=== PATIENT | male | born 1985 | race Two or more races ===

== ENCOUNTER 2019-01-20 05:52 | Day surgery (SDC) | payer BC ==
[~2019-01-20] VITALS: Ht 177.8 cm; Wt 87.5 kg
[2019-01-20] VITALS (9 sets, daily range): BP systolic 109–138; BP diastolic 65–79
[2019-01-20] MEDS ORDERED: LR 1000ml 1,000 ML IVLG SCH ×2 (06:27→07:00)
[2019-01-20] MEDS ORDERED: FAMOTIDINE10 MG ORAL (06:29)
[2019-01-20] MEDS ORDERED: LIALDA1.2 GM ORAL (06:29)
[2019-01-20] MEDS ORDERED: DiphenhydrAMINE 50mg/ml Inj IVP PRN (06:30)
[2019-01-20] MEDS ORDERED: Atropine Inj 1mg/10ml Syr IV PRN (06:30)
[2019-01-20] MEDS ORDERED: Midazolam 2mg/2ml Inj IVP PRN (06:30)
[2019-01-20] MEDS ORDERED: fentaNYL 100 mcg/2 mL IV PRN (06:30)
--- NOTE | 2019-01-20 06:30 | Anethesia Preoperative Eval ---
Anesthesia Pre-op PMH/ROS General Date of Evaluation: Jan 20, 2019 Time of Evaluation: 06:29 Anesthesiologist: amador ASA Score: ASA 2 Mallampati Score Class I : Soft palate, uvula, fauces, pillars visible Class II: Soft palate, uvula, fauces visible Class III: Soft palate, base of uvula visible Class IV: Only hard plate visible Mallampati Classification: Class II Surgeon: claire Diagnosis: ulcerative colitis Surgical Procedure: colonoscopy Anesthesia History: none Social History: smoking - nonsmoker Family History: no anesthesia problems Allergies: Coded Allergies: CODEINE (Verified Allergy, Unknown, 01/20/19) cannot remember reaction Medications: see eMAR Patient NPO?: Yes Past Medical History Gastrointestinal/Genitourinary: Reports: GERD, other - ulcerative colitis Anesthesia Pre-op Phys. Exam Physician Exam Last Vital Signs Date Time Temp Pulse Resp B/P (MAP) Pulse Ox O2 Delivery O2 Flow Rate FiO2 01/20/19 06:35 97.9 60 20 138/78 97 Room Air Constitutional: NAD Neurologic: CN 2-12 intact Cardiovascular: RRR Respiratory: CTA Gastrointestinal: S/NT/ND Airway Exam Mallampati Score: Class II MO: full Neck: flexible TMD: 2fb ROM: full Anesthesia Pre-op A/P Risk Assessment & Plan Assessment: asa2 Plan: mac Status Change Before Surgery: No Pre-Antibiotics Drug: Torri Alicea MD Jan 20, 2019 06:30
[2019-01-20] MEDS ORDERED: Lidocaine 1% MPF 10mg/ml 5ml ONE (07:00)
[2019-01-20] MEDS ORDERED: Atropine Sulfate 0.4mg/ml inj ONE (07:00)
[2019-01-20] MEDS ORDERED: Propofol 200mg/20ml IV ONE (07:00)
[2019-01-20] MEDS ORDERED: LR 1000ml ONE (07:00)
--- NOTE | 2019-01-20 07:07 | Short Stay Surgery H&P ---
History of Present Illness History of Present Illness Chief Complaint see H&P attached HPI Feliberto Slaughter is a 33 year old male who was admitted on for Ulcerative Colitis Patient History Allergies: Coded Allergies: CODEINE (Verified Allergy, Unknown, 01/20/19) cannot remember reaction Medication History Scheduled Famotidine (Famotidine), 10 MG ORAL DAILY, (Reported) Mesalamine (Lialda), 2.4 GM ORAL DAILY, (Reported) Physical Exam Vital Signs Last Vital Signs Date Time Temp Pulse Resp B/P (MAP) Pulse Ox O2 Delivery O2 Flow Rate FiO2 01/20/19 06:35 97.9 60 20 138/78 97 Room Air Plan Attestation Are the patient's medical conditions optimized for surgery? Janny Dotson MD Jan 20, 2019 07:07
--- NOTE | 2019-01-20 07:07 | Pre-Procedure Note/Attestation ---
Pre-Procedure Note/Attestation Complete Prior to Procedure Planned Procedure: not applicable Procedure Narrative: esophagogastroduodenoscopy colon Indications for Procedure Pre-Operative Diagnosis: Heme (+) Attestation I attest that I discussed the nature of the procedure; its benefits; risks and complications; and alternatives (and the risks and benefits of such alternatives ), prior to the procedure, with the patient (or the patient's legal delivery representative). I attest that, if there was a reasonable possibility of needing a blood transfusion, the patient (or the patient's legal delivery representative) was given the [facility] standardized written summary, pursuant to the Andreas Stephanie Blood Safety Act ([place] Health and Safety Code # 1645, as amended). I attest that I re-evaluated the patient just prior to the surgery and that there has been no change in the patient's H&P, except as documented below: Janny Dotson MD Jan 20, 2019 07:07
--- NOTE | 2019-01-20 08:17 | Immediate Post-Op Evaluation ---
Immediate Post-Op Evalulation Immediate Post-Op Evalulation Procedure: colonoscopy w/bx Date of Evaluation: Jan 20, 2019 Time of Evaluation: 08:14 IV Fluids: 450ml lr Blood Products: none Estimated Blood Loss: negligible Blood Pressure Systolic: 117 Blood Pressure Diastolic: 76 Pulse Rate: 83 Respiratory Rate: 18 O2 Sat by Pulse Oximetry: 99 Temperature (Fahrenheit): 97.8 Pain Score (1-10): 0 Nausea: No Vomiting: No Complications none Patient Status: awake, reacts, patent Hydration Status: adequate Drug: Torri Alicea MD Jan 20, 2019 08:17
--- NOTE | 2019-01-20 08:18 | 48 Hour Post Anesthesia Eval ---
Post Anesthesia Evaluation Procedure: colonoscopy w/bx Date of Evaluation: Jan 20, 2019 Time of Evaluation: 08:18 Blood Pressure Systolic: 110 0: 75 Pulse Rate: 80 Respiratory Rate: 18 Temperature (Fahrenheit): 97.8 O2 Sat by Pulse Oximetry: 99 Airway: patent Nausea: No Vomiting: No Pain Intensity: 0 Hydration Status: adequate Cardiopulmonary Status: stable Mental Status/LOC: patient returned to baseline Post-Anesthesia Complications: none Follow-up care needed: N/A Torri Stark MD Jan 20, 2019 08:18
--- NOTE | 2019-01-20 08:26 | Endoscopy Procedure Note ---
Endoscopy Procedure Note General Indication for Procedure: UC, OB (+) Procedures Performed: colonoscopy Operative Findings/Diagnosis: patchy loss of vasc, anal nodule, anal polyp Specimen: yes Pt Tolerated Procedure Well: Yes Estimated Blood Loss: minimal Anesthesia Anesthesiologist: Dejuan Anesthesia: MAC Medications Medication Given: see anesthesia record Inserted Devices Implant(s) used?: No GI Core Measures 50 yrs or older w/o bx or poly: Not Applicable 10yrs. F/U recommended: Not Applicable If not recommended, why?: Janny Dotson MD Jan 20, 2019 08:25
--- NOTE | 2019-01-20 08:27 | Brief Operative Note ---
Immediate Post Operative Note Operative Note Chief Complaint: UC Pre-op Diagnosis: Heme (+) Procedure: COLON bx Post-op Diagnosis: patchy loss of distal vascularity, rectal dim polyps, anal nodule Surgeon: claire Anesthesiologist: denzel wu Specimen: yes Complications: none Condition: stable Fluids: per anesthesia Estimated Blood Loss: none Drains: none Implant(s) used?: No Janny Dotson MD Jan 20, 2019 08:27
--- NOTE | 2019-01-20 16:00 | Operative Note - Dictated ---
DATE OF OPERATION: 01/20/2019 PROCEDURE: Colonoscopy with biopsy. SURGEON: Janny Dotson M.D. ANESTHESIOLOGIST: Torri Zaidi M.D. PRE-ENDOSCOPIC DIAGNOSES: 1. Ulcerative colitis. 2. Heme-positive stools. POST-ENDOSCOPIC DIAGNOSES: 1. Normal terminal ileum to about 15 cm, status post biopsy. 2. Patchy loss of mucosal vascularity in the rectum and in mid sigmoid colon without ulceration or erosions. 3. Status post random biopsies of ascending colon, transverse colon, descending colon, and multiple segments of sigmoid colon and rectum. 4. Diminutive polyps seen in the rectum measuring approximately 3 to 4 mm which were removed by biopsy. 5. A 3 mm external anal nodule seen upon external examination with no evidence of fistulous opening on the retroflex view of the rectum. PROCEDURE The procedure and risks were explained and an informed consent was obtained. The patient was sedated and the diagnostic colonoscope was introduced into the rectum and advanced to the terminal ileum. The colonoscope was then gradually withdrawn. All findings and procedures are as listed above. Patient sent to recovery in stable condition. RECOMMENDATIONS: 1. Follow up biopsy results. 2. Outpatient follow up. 3. Consider further evaluation of the external anal nodule as an outpatient. Janny Dotson M.D. DR: ABENA JOB#: [id number] CC: Janny Dotson M.D.; Fax#: [phone] [facility]
== END 2019-01-20 09:00 | disposition home or self-care (01) ==
LOC: GAS 05:52
DX: R19.5 Other fecal abnormalities (principal); K62.1 Rectal polyp; Z88.6 Allergy status to analgesic agent; Z79.899 Other long term (current) drug therapy; K21.9 Gastro-esophageal reflux disease without esophagitis; K52.9 Noninfective gastroenteritis and colitis, unspecified
CPT/HCPCS: 45380; J0461; J2704; 94003; 94150

== ENCOUNTER 2020-02-25 05:40 | Day surgery (SDC) | payer BC ==
[2020-02-25] VITALS (9 sets, daily range): BP systolic 109–124; BP diastolic 58–75
[~2020-02-25] VITALS: Ht 177.8 cm; Wt 93.0 kg
[~2020-02-25 05:40] MED LIST: FAMOTIDINE10 MG ORAL; LIALDA1.2 GM ORAL; ZYRTEC10 MG ORAL
[2020-02-25] MEDS ORDERED: PROTONIX40 MG ORAL (05:58)
[2020-02-25] MEDS ORDERED: LR 1000ml 1,000 ML IVLG SCH (06:00)
[2020-02-25] MEDS ORDERED: Midazolam 2mg/2ml Inj ONE (06:33)
[2020-02-25] MEDS ORDERED: fentaNYL 100 mcg/2 mL IV ONE (06:33)
--- NOTE | 2020-02-25 06:57 | Anethesia Preoperative Eval ---
Anesthesia Pre-op PMH/ROS General Date of Evaluation: Feb 25, 2020 Time of Evaluation: 06:55 Anesthesiologist: Festus ASA Score: ASA 2 Mallampati Score Class I : Soft palate, uvula, fauces, pillars visible Class II: Soft palate, uvula, fauces visible Class III: Soft palate, base of uvula visible Class IV: Only hard plate visible Mallampati Classification: Class II Surgeon: Nancy Diagnosis: Abdominal pain Surgical Procedure: EGD Anesthesia History: none Family History: no anesthesia problems Allergies: Coded Allergies: CODEINE (Verified Allergy, Unknown, 02/25/20) cannot remember reaction Medications: see eMAR Patient NPO?: Yes Past Medical History Cardiovascular: Denies: HTN, CAD, HI, valve dz, arrhythmia, other Pulmonary: Denies: asthma, COPD, BRYCE, other Gastrointestinal/Genitourinary: Reports: GERD Neurologic/Psychiatric: Reports: depression/anxiety Endocrine: Denies: DM, hypothyroidism, steroids, other HEENT: Denies: cataract (L), cataract (R), glaucoma, NEWTOK (L), NEWTOK (R), other Hematology/Immune: Denies: anemia, DVT, bleeding disorder, other Musculoskeletal/Integumentary: Denies: OA, RA, DJD, DDD, edema, other Other: other - overweight PMH Narrative: as above PSxH Narrative: see H&P Anesthesia Pre-op Phys. Exam Physician Exam Last Vital Signs Date Time Temp Pulse Resp B/P (MAP) Pulse Ox O2 Delivery O2 Flow Rate FiO2 02/25/20 06:02 Room Air 02/25/20 06:01 98.2 66 18 121/73 97 Constitutional: NAD Neurologic: CN 2-12 intact Cardiovascular: RRR, no M/R/G Respiratory: CTA Gastrointestinal: S/NT/ND Airway Exam Mallampati Score: Class II MO: full Neck: flexible ROM: full Teeth: intact Lui Mortensen MD Feb 25, 2020 06:57
[2020-02-25] MEDS ORDERED: LR 1000ml ONE (07:00)
--- NOTE | 2020-02-25 07:08 | Pre-Procedure Note/Attestation ---
Pre-Procedure Note/Attestation Complete Prior to Procedure Planned Procedure: not applicable Procedure Narrative: egd Indications for Procedure Pre-Operative Diagnosis: dysphagia Attestation I attest that I discussed the nature of the procedure; its benefits; risks and complications; and alternatives (and the risks and benefits of such alternatives ), prior to the procedure, with the patient (or the patient's legal ict sales representative). I attest that, if there was a reasonable possibility of needing a blood transfusion, the patient (or the patient's legal ict sales representative) was given the [facility] standardized written summary, pursuant to the Andreas Gardiner Blood Safety Act ([place] Health and Safety Code # 1645, as amended). I attest that I re-evaluated the patient just prior to the surgery and that there has been no change in the patient's H&P, except as documented below: Janny Dotson MD Feb 25, 2020 07:08
--- NOTE | 2020-02-25 07:08 | Short Stay Surgery H&P ---
History of Present Illness History of Present Illness Chief Complaint see typed H&P HPI Feliberto Palmer Slaughter is a 34 year old male who was admitted on for GERD Patient History Allergies: Coded Allergies: CODEINE (Verified Allergy, Unknown, 02/25/20) cannot remember reaction Medication History Scheduled Cetirizine Hcl* (Zyrtec*), 10 MG ORAL DAILY, (Reported) Mesalamine (Lialda), 2.4 GM ORAL DAILY, (Reported) Pantoprazole* (Protonix*), 40 MG ORAL DAILY, (Reported) Physical Exam Vital Signs Last Vital Signs Date Time Temp Pulse Resp B/P (MAP) Pulse Ox O2 Delivery O2 Flow Rate FiO2 02/25/20 06:02 Room Air 02/25/20 06:01 98.2 66 18 121/73 97 Plan Attestation Are the patient's medical conditions optimized for surgery? Janny Dotson MD Feb 25, 2020 07:08
--- NOTE | 2020-02-25 07:24 | Endoscopy Procedure Note ---
Endoscopy Procedure Note General Indication for Procedure: dysphagia, GERD Procedures Performed: EGD Operative Findings/Diagnosis: 3 cm HH, erosive gastritis, inlet patch Specimen: yes Pt Tolerated Procedure Well: Yes Estimated Blood Loss: none Anesthesia Anesthesiologist: Luisa Anesthesia: MAC Medications Medication Given: see anesthesia record Inserted Devices Implant(s) used?: No GI Core Measures 50 yrs or older w/o bx or poly: Not Applicable 10yrs. F/U recommended: Not Applicable Janny Dotson MD Feb 25, 2020 07:24
--- NOTE | 2020-02-25 07:26 | Brief Operative Note ---
Immediate Post Operative Note Operative Note Chief Complaint: GERD, dysphagia Pre-op Diagnosis: dysphagia Procedure: EGD bx Post-op Diagnosis: HH erosive maribell esoph inlet patch Surgeon: willem Anesthesiologist: Luisa Specimen: yes Complications: none Condition: stable Fluids: Per anesthesia Estimated Blood Loss: none Implant(s) used?: No Janny Dotson MD Feb 25, 2020 07:26
--- NOTE | 2020-02-25 07:28 | Immediate Post-Op Evaluation ---
Immediate Post-Op Evalulation Immediate Post-Op Evalulation Procedure: EGD with Bx Date of Evaluation: Feb 25, 2020 Time of Evaluation: 07:27 IV Fluids: 700 Blood Products: none Estimated Blood Loss: none Urinary Output: none` Blood Pressure Systolic: 116 Blood Pressure Diastolic: 58 Pulse Rate: 62 Respiratory Rate: 18 O2 Sat by Pulse Oximetry: 99 Temperature (Fahrenheit): 97.6 Pain Score (1-10): 1 Nausea: No Vomiting: No Complications none Patient Status: awake, patent, none Hydration Status: adequate Lui Mortensen MD Feb 25, 2020 07:28
--- NOTE | 2020-02-25 08:33 | 48 Hour Post Anesthesia Eval ---
Post Anesthesia Evaluation Procedure: EGD with Bx Date of Evaluation: Feb 25, 2020 Time of Evaluation: 08:32 Blood Pressure Systolic: 124 0: 72 Pulse Rate: 68 Respiratory Rate: 20 Temperature (Fahrenheit): 97.6 O2 Sat by Pulse Oximetry: 99 Airway: patent Nausea: No Vomiting: No Pain Intensity: 1 Hydration Status: adequate Cardiopulmonary Status: stable Mental Status/LOC: patient returned to baseline Follow-up Care/Observations: n/a Post-Anesthesia Complications: none Follow-up care needed: ready to discharge Lui Mortensen MD Feb 25, 2020 08:33
--- NOTE | 2020-02-25 22:45 | Operative Note - Dictated ---
DATE OF OPERATION: 02/25/2020 GASTROENTEROLOGY PROCEDURE REPORT PROCEDURE: Upper gastrointestinal endoscopy with biopsy. SURGEON: Janny Dotson MD. ANESTHESIA: Please see the separate anesthesiologist notes for details. PRE-ENDOSCOPIC DIAGNOSIS: Symptoms of gastroesophageal reflux with intermittent dysphagia. POST-ENDOSCOPIC DIAGNOSES: 1. A 3 cm hiatal hernia. 2. Mild erosive gastritis, status post biopsy of the antrum. 3. Status post random biopsies of the lower esophagus and mid esophagus. 4. Incidental esophageal inlet patch. DESCRIPTION OF PROCEDURE: The procedure, its risks, indications, alternatives, and possible complications were explained to the patient and informed consent was obtained. The patient was then sedated and a diagnostic upper endoscope was introduced through oropharynx and advanced to the duodenum without difficulty. The endoscope was then gradually withdrawn and mucosa examined carefully. Examination of the upper gastrointestinal mucosa revealed the above listed findings. There were no other evidence of ulcers or mass lesions or strictures seen. The endoscope was removed. The patient was sent to recovery in good condition. COMPLICATIONS: None. RECOMMENDATIONS: 1. Follow up biopsy results. 2. Check and treat Helicobacter pylori if positive. 3. Outpatient followup. Janny Dotson M.D. DR: YOLA JOB#: [id number] CC: Janny Dotson M.D.; Fax#: [phone]
== END 2020-02-25 08:25 | disposition home or self-care (01) ==
LOC: GAS 05:40
DX: R13.10 Dysphagia, unspecified (principal); K44.9 Diaphragmatic hernia without obstruction or gangrene; K29.50 Unspecified chronic gastritis without bleeding; K21.9 Gastro-esophageal reflux disease without esophagitis; Z88.6 Allergy status to analgesic agent; Z79.899 Other long term (current) drug therapy; F32.9 Major depressive disorder, single episode, unspecified; F41.9 Anxiety disorder, unspecified; E66.3 Overweight; Z68.29 Body mass index [BMI] 29.0-29.9, adult
CPT/HCPCS: 43239; 94003; J2250; J2704; J3010; J7120; 94150